=== PATIENT | male | born 1960 | race Caucasian/White ===

== ENCOUNTER 2017-02-28 10:56 | Emergency (ER) | payer OTHER ==
[~2017-02-28 10:56] MED LIST: AZITHROMYCIN250 MG PO; FIORICET1 TAB PO; LEVAQUIN750 MG PO; LIPITOR20 MG PO; LISINOPRIL-HCTZ1 T18 PO; VICOPROFEN 200-1 TAB; ZESTORETIC 10/11 TA1 PO
== END 2017-02-28 11:35 | disposition home or self-care (01) ==
LOC: SED 10:56
DX: T63.441A Toxic effect of venom of bees, accidental (unintentional), initial encounter (principal); I10 Essential (primary) hypertension; Z98.890 Other specified postprocedural states; Z79.899 Other long term (current) drug therapy; Y92.89 Other specified places as the place of occurrence of the external cause
CPT/HCPCS: 99281